=== PATIENT | male | born 1950 | race Caucasian/White ===

== ENCOUNTER → 2021-09-24 10:38 | Outpatient (BNVA) | payer MEDICARE, BC, SELFPAY | PROVIDERS: Visit Provider Orthopaedic Surgery | DX: M65.342 Trigger finger, left ring finger (principal); R20.0 Anesthesia of skin; R20.2 Paresthesia of skin | CPT/HCPCS: 99202 ==

== ENCOUNTER → 2021-11-26 09:40 | Outpatient (BNVA) | payer MEDICARE, OTHER, SELFPAY | PROVIDERS: Visit Provider Orthopaedic Surgery | DX: M65.342 Trigger finger, left ring finger (principal); M65.331 Trigger finger, right middle finger; G56.01 Carpal tunnel syndrome, right upper limb; G56.22 Lesion of ulnar nerve, left upper limb | CPT/HCPCS: 20550; 99212; J1100 ==

== ENCOUNTER 2022-11-24 09:23 | Outpatient (AMB) | payer MEDICARE, OTHER, SELFPAY ==
--- NOTE | 2022-11-24 09:42 | A.OFFVIS_ITS ---
Intake Vital Signs 11/24/22 09:43 Height 5 ft 4 in Weight 166 lb BMI 28.5 Intake Visit Reasons: OV- B/L Hand Pain Intake Note: Anthony a 72 yr old male who is right hand dominant, presents today for s/p left ring finger trigger injection from 11/26/21. States injection helped, has relief his pain and locking of left ring finger . Patient is now complaining of locking of index, middle finger and thumb. States his finger are locking and has to pop them back up. patient would like to discuss injection. Allergies No Known Allergies Allergy (Verified 11/24/22 09:49) HPI OV- B/L Hand Pain HPI Details Anthony is a 72 year old right hand dominant man who presents with complaints of multiple trigger fingers. He is S/P injection for left ring trigger finger, performed on 11/26/21, with good resolution of his symptoms. He complains of painful locking of his right thumb, index, and middle fingers, as well as the left thumb, index, and middle fingers. He says these are worst in the mornings and he has to manually extend his fingers sometimes. His chief complaint today is of his left thumb & middle trigger fingers, as these are the most painful. He also has right carpal tunnel & left cubital tunnel syndrome. He complains of worsening numbness in the right median nerve distribution, and says he is now experiencing numbness in the left median nerve distribution. His symptoms are intermittent, and occasional throughout the week, worse at night or with activity. He does not think he is getting numbness every day. FORMERLY [facility], [facility] Medical History Acid reflux Anxiety High cholesterol Social History Patient Tobacco Use Status: Never used Tobacco Current occupational status: retired Current occupation: rt hand Review of Systems Const All systems reviewed & are unremarkable except as noted in HPI and below Physical Exam Vital Signs: BMI result Body Mass Index 28.5 Const General: cooperative, healthy appearing and no acute distress Orientation/consciousness: patient oriented x3 Neuro General: patient oriented x3 Extrem Other: Evaluation of Bilateral Upper Extremity: The patient is alert, oriented, and in no acute distress Neuro: Median, Ulnar, Radial nerves motor and sensory intact and sensation is normal to the tips of all digits today in clinic. No thenar or intrinsic wasting Good APB muscle belly firing and good finger cross Vascular: Cap refill brisk ROM: He is hesitant to bring his fingers closed to a fist as he is worried about his fingers locking He has visible and palpable locking of his left thumb, index, and middle fingers Tender to palpation over the A1 jan of the left thumb, index, and middle fingers No locking or catching of the left ring finger s Visible arthritic changes in the PIP & DIP joints bilaterally EMG Nerve Conduction study: Performed by: Dr. Olive hinkle 02/13/2021 From [facility] In [place], [place] 1. Evidence of mild right-sided median neuropathy at the wrist 2. Mild left-sided ulnar neuropathy at the elbow 3. No evidence of left-sided median neuropathy at the wrist Please see the report for additional information as necessary Psych Appearance: grossly normal Affect: normal affect Attitude: cooperative Assessment & Plan Assessment & Plan (1) Carpal tunnel syndrome of right wrist: Code(s): G56.01 - Carpal tunnel syndrome, right upper limb (2) Cubital tunnel syndrome on left: Code(s): G56.22 - Lesion of ulnar nerve, left upper limb (3) Trigger finger, right middle finger: Code(s): M65.331 - Trigger finger, right middle finger (4) Trigger index finger of left hand: Code(s): M65.322 - Trigger finger, left index finger (5) Trigger index finger of right hand: Code(s): M65.321 - Trigger finger, right index finger (6) Trigger thumb of left hand: Code(s): M65.312 - Trigger thumb, left thumb (7) Trigger thumb of right hand: Code(s): M65.311 - Trigger thumb, right thumb (8) Trigger middle finger of left hand: Code(s): M65.332 - Trigger finger, left middle finger (9) Numbness and tingling in left hand: Code(s): R20.0 - Anesthesia of skin; R20.2 - Paresthesia of skin Plan Assessment & Plan: 1. Left trigger thumb 2. Left middle finger trigger finger These are his most symptomatic complaints today I educated him about these conditions I discussed operative and non-operative treatment option The patient would like to proceed with surgery for his right hand The risks and benefits of operative treatment were discussed with the patient and the patient wishes to proceed with surgery. These risks include, but are not limited to risk of damage to blood vessels, nerves, tendons, infection, recurrence, incomplete relief of preoperative symptoms, persistent pain, possible need for further surgery and the risks associated with regional blocks and anesthesia. The plan is to take the patient to the operating room sometime in the next few weeks for the following procedures: 1. Left trigger thumb release, under local 2. Left middle trigger finger release, under local All of the preoperative paperwork including the consent was filled out today. All the patient's questions were answered. The patient understands that they will be contacted by our senior master scheduler soon to schedule this procedure He denies Diabetes, blood thinners, asthma, heart, lung, kidney issues 3. Left index finger trigger finger 4. Right middle finger trigger finger 5. Right thumb trigger finger We will address the other trigger fingers as they become problematic 6. Left Ring finger trigger finger, S/P injection Date of Injection: 11/26/21 With good resolution of his symptoms 7. Right carpal tunnel syndrome, mild Symptoms intermittent, and occasional throughout the week, worse with activit ies, particularly bike riding or driving. Occasional night-time symptoms His symptoms have increased in frequency 8. Left hand numbness In the median nerve distribution, intermittent hand occasional 9. Left Cubital tunnel syndrome, mild on EMG Patient is unsure if he gets any numbness in the small finger of his left hand He will monitor his symptoms and contact the clinic if his symptoms worsen A new NCS may need to be ordered prior to discussing treatment Please note that greater than 30 minutes was spent with this patient going over the history, evaluating the patient and radiographs, formulating possible treatment options, discussing them with the patient, and documenting the visit. Scribed for Isamar Delgado MD by Jacques Valentin, director medical economics, on 11/24/22 at 10:35 AM, EST. Coding Level of Care Code Est Pt Level 4 (66607) Diagnoses Carpal tunnel syndrome of right wrist G56.01 Cubital tunnel syndrome on left G56.22 Trigger finger, right middle finger M65.331 Trigger index finger of left hand M65.322 Trigger index finger of right hand M65.321 Trigger thumb of left hand M65.312 Trigger thumb of right hand M65.311 Trigger middle finger of left hand M65.332 Numbness and tingling in left hand R20.0; R20.2
[2022-11-24 09:43] VITALS: BMI 28.5
== END 2022-11-24 10:44 | disposition home or self-care (01) ==
PROVIDERS: PCP Internal Medicine; Visit Provider Orthopaedic Surgery
DX: G56.01 Carpal tunnel syndrome, right upper limb (principal); G56.22 Lesion of ulnar nerve, left upper limb; M65.331 Trigger finger, right middle finger; M65.322 Trigger finger, left index finger; M65.321 Trigger finger, right index finger; M65.312 Trigger thumb, left thumb; M65.311 Trigger thumb, right thumb; M65.332 Trigger finger, left middle finger; R20.0 Anesthesia of skin; R20.2 Paresthesia of skin
CPT/HCPCS: 99214

== ENCOUNTER → 2022-11-24 09:23 | Outpatient (BNVA) | payer MEDICARE, OTHER, SELFPAY | PROVIDERS: PCP Internal Medicine; Visit Provider Orthopaedic Surgery | DX: M65.322 Trigger finger, left index finger (principal); M65.332 Trigger finger, left middle finger; M65.312 Trigger thumb, left thumb; M65.311 Trigger thumb, right thumb; M65.321 Trigger finger, right index finger; M65.331 Trigger finger, right middle finger; G56.01 Carpal tunnel syndrome, right upper limb; G56.22 Lesion of ulnar nerve, left upper limb; R20.2 Paresthesia of skin; R20.0 Anesthesia of skin | CPT/HCPCS: 99212 ==

== ENCOUNTER 2023-11-11 12:56 | Outpatient (REF) | payer MEDICARE, BC, SELFPAY ==
--- NOTE | ~2023-11-11 | XR_ITS ---
EXAMINATION: XR HIP, LEFT CLINICAL INFORMATION: Hip pain COMPARISON: None available. TECHNIQUE: Pelvis one view. One view of the left hip. FINDINGS: Left hip joint space is maintained. There is lateral acetabular sclerosis and subchondral cysts. No acute fracture or dislocation. Left greater trochanteric spurring. Right hip joint space is maintained. No diastasis of the SI joints or symphysis pubis. No acute pelvic fractures seen. No suspicious soft tissue calcification. XR/XR hip LT min 2V IMPRESSION: Mild left hip arthritis.
== END 2023-11-11 12:57 | disposition home or self-care (01) ==
LOC: HO.HOSX 12:56
PROVIDERS: Visit Provider Orthopaedic Surgery
DX: M25.552 Pain in left hip (principal)
CPT/HCPCS: 73502; 99202

== ENCOUNTER 2023-11-11 14:46 | Outpatient (AMB) | payer MEDICARE, BC, SELFPAY ==
--- NOTE | 2023-11-11 15:06 | A.OFFVIS_ITS ---
Intake Visit Reasons: New prob left hip pain Intake Note: Anthony is a 73 year old male who presents to the office today for complaints of left hip pain. The patient states that his left hip pain is mostly along the posterior aspect of his left hip but at times in his left groin and thigh. Pt states it started about 4-5 months ago with no known injury. Pt states the pain radiates into his leg occasionally. Pt states he has pain after exercising and sitting for a while. Pt denies any previous surgeries or injections in his left hip. Pt has had a cortisone injection in his right hip in the past which has helped. Allergies No Known Allergies Allergy (Verified 11/11/23 15:06) Medication List - Last Reconciled 11/11/23 by Earl Hudson MD atorvastatin 40 mg PO DAILY famotidine 40 mg PO BID sertraline mg PO valacyclovir 1,000 mg PO BID zolpidem 5 mg PO BEDTIME PRN PFSH Medical History Acid reflux Anxiety High cholesterol Social History Patient Tobacco Use Status: Never used Tobacco Current occupational status: retired Current occupation: rt hand Physical Exam Const Other: Well-nourished well-developed very friendly male awake alert and oriented x3 in no acute distress Extrem Other: Bilateral lower extremity examination shows good capillary refill, no skin lesions noted, normal sensation light touch Left hip examination shows full range of motion when compared to his right hip, tenderness over his bursa, no overlying skin lesions Results Reviewed Results Reviewed: X-rays of the patient's left hip show mild joint space narrowing, no acute bony abnormalities Assessment & Plan Assessment & Plan (1) Left hip pain: Code(s): M25.552 - Pain in left hip Category: Medical Plan Mr. Singer presents with left hip pain most likely due to greater trochanteric bursitis. I had a lengthy discussion with the patient regarding the treatment options. I did give him a prescription for a Medrol Dosepak. We will hold off on a cortisone injection at this time. He will contact me prior to his follow- up appointment in 4-6 weeks should his symptoms worsen in any way. Feel free to call me at any time should questions regarding his orthopedic management arise. I spent 22 minutes in reviewing the patient's records and imaging studies, seeing the patient and documenting in the medical record. Orders: Orders XR hip LT min 2V 11/11/23 M25.552 - Pain in left hip Medications: New methylprednisolone (Medrol (Josue)) PO PER PKG DIR 21 ea 0RF Coding Level of Care Code New Pt Level 3 (95050) Diagnoses Left hip pain M25.552
== END 2023-11-11 15:24 | disposition home or self-care (01) ==
PROVIDERS: PCP Internal Medicine; Visit Provider Orthopaedic Surgery
DX: M25.552 Pain in left hip (principal)
CPT/HCPCS: 99203